=== PATIENT | female | born 1985 | race Caucasian/White ===

== ENCOUNTER 2018-12-09 16:26 | Emergency (ER) | payer BC ==
[2018-12-09] MEDS ORDERED: ONDANSETRON HCL INJ/PF 4 MG/2 ML SDV IV ONE (18:44)
--- NOTE | 2018-12-09 18:47 | ER Document Report ---
ED Medical Screen (RME) - General Chief Complaint: Abdominal Pain Stated Complaint: ABDOMINAL PAIN Time Seen by Provider: 12/09/18 18:44 Primary Care Provider: BETITO CALLOWAY PA-C [Primary Care Provider] - Follow up as needed Notes: Patient is a 33-year-old female presents for epigastric abdominal pain since Wednesday. The joint and left upper quadrant. Patient's also complaining of nausea, no vomiting or diarrhea. Patient does have a history of a cholecystectomy. Patient's last menstrual period just today. GENERAL: Alert, interacts well. No acute distress. ABDOMEN: Obese soft, epigastric tenderness, left upper quadrant tenderness. No Henley sign noted, no McBurney's point tenderness. Non-distended. Bowel sounds present in all 4 quadrants. I have greeted and performed a rapid initial assessment of this patient. A comprehensive ED assessment and evaluation of the patient, analysis of test results and completion of the medical decision making process will be conducted by additional ED providers. TRAVEL OUTSIDE OF THE [place] IN LAST 30 DAYS: No - Related Data Allergies/Adverse Reactions: No Known Allergies Allergy (Verified 12/09/18 16:28) Past Medical History - Past Medical History Cardiac Medical History: Pulmonary Medical History: Denies: Hx Asthma, Hx Bronchitis Neurological Medical History: Renal/ Medical History: Denies: Hx Peritoneal Dialysis GI Medical History: Musculoskeltal Medical History: Infectious Medical History: Past Surgical History: Physical Exam - Vital signs Vitals: Temp Pulse Resp BP Pulse Ox 98.3 F 70 16 142/98 H 98 12/09/18 16:30 12/09/18 16:30 12/09/18 16:30 12/09/18 16:30 12/09/18 16:30 Course - Vital Signs Vital signs: Temp Pulse Resp BP Pulse Ox 98.3 F 70 16 142/98 H 98 12/09/18 16:30 12/09/18 16:30 12/09/18 16:30 12/09/18 16:30 12/09/18 16:30 Doctor's Discharge - Discharge Referrals: BETITO CALLOWAY PA-C [Primary Care Provider] - Follow up as needed
[2018-12-09 20:07] LABS: ABSOLUTE EOSINOPHILS # (AUTO) 0.2 10^3/uL (0.0-0.6); ABSOLUTE LYMPHOCYTES (AUTO) 3.3 10^3/uL (0.5-4.7); ABSOLUTE MONOCYTES (AUTO) 0.6 10^3/uL (0.1-1.4); ABSOLUTE NEUT (AUTO) 5.8 10^3/uL (1.7-8.2); BASOPHILS % (AUTO) 0.3 % (0-2); EOSINOPHILS % (AUTO) 1.7 % (0-6); HEMATOCRIT 42.8 % (36.0-47.0); HEMOGLOBIN 14.9 g/dL (12.0-15.5); LYMPHOCYTES % (AUTO) 33.5 % (13-45); MEAN CORPUSCULAR HEMOGLOBIN 29.9 pg (27.0-33.4); MEAN CORPUSCULAR HGB CONC 34.8 g/dL (32.0-36.0); MEAN CORPUSCULAR VOLUME 86 fl (80-97); PLATELET COUNT 245 10^3/uL (150-450); RED BLOOD COUNT 4.99 10^6/uL (3.72-5.28); RED CELL DISTRIBUTION WIDTH 12.7 % (11.5-14.0); SEGMENTED NEUTROPHILS % (AUTO) 58.5 % (42-78); TOTAL CELLS COUNTED % (AUTO) 100 %; WHITE BLOOD COUNT 9.9 10^3/uL (4.0-10.5)
[2018-12-09 20:23] LABS: APPEARANCE,URINE SLIGHTLY-CLOUDY; BILIRUBIN,URINE NEGATIVE (NEGATIVE); COLOR,URINE YELLOW; GLUCOSE, URINE NEGATIVE (NEGATIVE); KETONES,URINE NEGATIVE (NEGATIVE); LEUKOCYTE ESTERASE,URINE TRACE (NEGATIVE); NITRITE,URINE NEGATIVE (NEGATIVE); PROTEIN,URINE NEGATIVE (NEGATIVE); URINE SPECIFIC GRAVITY 1.023; UROBILINOGEN,URINE NEGATIVE mg/dL (<2.0)
[2018-12-09 20:27] LABS: ALANINE AMINOTRANSFERASE 29 U/L (9-52); ALBUMIN 4.9 g/dL (3.5-5.0); ALKALINE PHOSPHATASE 59 U/L (38-126); ANION GAP 10 (5-19); ASPARTATE AMINO TRANSFERASE 21 U/L (14-36); BILIRUBIN,DIRECT 0.3 mg/dL (0.0-0.4); BILIRUBIN,TOTAL 0.3 mg/dL (0.2-1.3); BLOOD UREA NITROGEN 10 mg/dL (7-20); CALCIUM 9.6 mg/dL (8.4-10.2); CARBON DIOXIDE 29 mmol/L (22-30); CHLORIDE 102 mmol/L (98-107); GLUCOSE 95 mg/dL (75-110); LIPASE 110.6 U/L (23-300); POTASSIUM 3.8 mmol/L (3.6-5.0); SODIUM 140.5 mmol/L (137-145)
[2018-12-09] MEDS ORDERED: LIDOCAINE 2% VISCOUS SOLN 20 ML UDCUP PO ONE (20:31)
[2018-12-09] MEDS ORDERED: MAG HYDROX/AL HYDROX/SIMETH SUSP 30 ML UDCUP PO ONE (20:31)
[2018-12-09] MEDS ORDERED: METOCLOPRAMIDE HCL ORAL SOLN 10 MG/10 ML UDCUP PO ONE (20:31)
--- NOTE | 2018-12-09 23:14 | ER Document Report ---
ED General - General Chief Complaint: Abdominal Pain Stated Complaint: ABDOMINAL PAIN Time Seen by Provider: 12/09/18 18:44 Primary Care Provider: BETITO CALLOWAY PA-C [NO LOCAL MD] - Follow up as needed PRIMO PICKARD MD [ACTIVE STAFF] - Follow up in 1 week Information source: Patient TRAVEL OUTSIDE OF THE [place] IN LAST 30 DAYS: No - HPI Patient complains to provider of: abdominal pain Onset: Other - 33-year-old otherwise healthy female that presents for evaluation of abdominal pain. She notes that this is been intermittent over the last 5 years having had her gallbladder removed but for the last 3 days and see more persistent. There is some associated nausea with it but no other symptoms denies fevers chills emesis diarrhea constipation dysuria rashes or similar symptoms in the past. - Related Data Allergies/Adverse Reactions: No Known Allergies Allergy (Verified 12/09/18 16:28) Past Medical History - General Information source: Patient - Social History Smoking Status: Unknown if Ever Smoked Family History: None Patient has suicidal ideation: No Patient has homicidal ideation: No - Past Medical History Cardiac Medical History: Pulmonary Medical History: Denies: Hx Asthma, Hx Bronchitis Neurological Medical History: Renal/ Medical History: Denies: Hx Peritoneal Dialysis GI Medical History: Musculoskeletal Medical History: Infectious Medical History: Past Surgical History: Review of Systems - Review of Systems -: Yes All other systems reviewed and negative Physical Exam - Vital signs Vitals: Temp Pulse Resp BP Pulse Ox 98.3 F 70 16 142/98 H 98 12/09/18 16:30 12/09/18 16:30 12/09/18 16:30 12/09/18 16:30 12/09/18 16:30 Interpretation: Normal - General General appearance: Appears well, Alert - HEENT Head: Normocephalic, Atraumatic Eyes: Normal Pupils: PERRL - Respiratory Respiratory status: No respiratory distress Chest status: Nontender Breath sounds: Normal Chest palpation: Normal - Cardiovascular Rhythm: Regular Heart sounds: Normal auscultation Murmur: No - Abdominal Inspection: Normal Distension: No distension Bowel sounds: Normal Tenderness: Nontender Organomegaly: No organomegaly - Back Back: Normal, Nontender - Extremities General upper extremity: Normal inspection, Nontender, Normal color, Normal ROM, Normal temperature General lower extremity: Normal inspection, Nontender, Normal color, Normal ROM, Normal temperature, Normal weight bearing. No: Jenn's sign - Neurological Neuro grossly intact: Yes Cognition: Normal Orientation: AAOx4 Arnie Coma Scale Eye Opening: Spontaneous [place] Coma Scale Verbal: Oriented Arnie Coma Scale Motor: Obeys Commands Arnie Coma Scale Total: 15 Speech: Normal Motor strength normal: LUE, RUE, LLE, RLE Sensory: Normal - Psychological Associated symptoms: Normal affect, Normal mood - Skin Skin Temperature: Warm Skin Moisture: Dry Skin Color: Normal Course - Re-evaluation Re-evalutation: 12/10/18 00:32 This is an exceptionally well-appearing 33-year-old female presents for abdominal pain. She had labs drawn through triage. Assessment this patient's abdominal examination is benign, she is able to tolerate p.o. Her labs are unremarkable at this time we discussed further options including imaging, further assessment reassessment. She is given a dose of a GI cocktail which did improve her symptoms. We discussed the potential of ulcer gastritis or other symptoms and opted for symptomatic care with outpatient referral to gastroenterology. She was able to tolerate p.o. with a benign abdominal examination at the time of discharge. - Vital Signs Vital signs: Temp Pulse Resp BP Pulse Ox 98.2 F 74 20 138/81 H 100 12/10/18 00:03 12/10/18 00:03 12/10/18 00:03 12/10/18 00:03 12/10/18 00:03 - Laboratory Result Diagrams: 12/09/18 19:52 12/09/18 19:52 Laboratory results interpreted by me: 12/09/18 19:52 Urine Blood MODERATE H Ur Leukocyte Esterase TRACE H Discharge - Discharge Clinical Impression: Ulcer Abdominal pain Qualifiers: Abdominal location: unspecified location Qualified Code(s): R10.9 - Unspecified abdominal pain Condition: Good Disposition: HOME, SELF-CARE Instructions: Abdominal Pain ([facility]) Additional Instructions: You were seen today in the emergency department for your abdominal pain. You had a physical exam as well as medications and blood work. Your organ function appeared normal today. You will be treated for a possible ulcer. You have been given an acid medication and a medication to help coat her stomach. Take these medications as directed. Schedule an appointment with the doctor provided to you. Prescriptions: Omeprazole 40 mg PO DAILY #25 capsule.dr Sucralfate [Carafate 1 gm Tablet] 1 gm PO QID #120 tablet Referrals: BETITO CALLOWAY PA-C [NO LOCAL MD] - Follow up as needed PRIMO PICKARD MD [ACTIVE STAFF] - Follow up in 1 week
[2018-12-10 00:05] VITALS: BP 138/81
== END 2018-12-09 23:35 | disposition home or self-care (01) ==
LOC: ER 16:26
DX: R10.9 Unspecified abdominal pain (principal); R11.0 Nausea; L98.499 Non-pressure chronic ulcer of skin of other sites with unspecified severity; Z90.49 Acquired absence of other specified parts of digestive tract
CPT/HCPCS: 36415; 83690; 85025; 81025; 80053; 81001; J3490; J2405; 96374; 99284